=== PATIENT | female | born 1940 | race Caucasian/White ===

== ENCOUNTER → 2019-04-19 | Outpatient (CLI) | payer MEDICARE ==
--- NOTE | 2019-04-19 20:15 | REP ---
PA and lateral chest: There are no comparisons. The lung villalta are hyperinflated. There is focal increased density above the right hemidiaphragm. There is focal increased density inferolaterally in the left lung. There is fullness in the left hilus. CT is recommended for further evaluation of these findings. Cardiac size is normal. The mediastinum and skeletal structures are unremarkable. Impression: Focal zones of increased parenchymal density bilaterally and left hilar fullness. CT is recommended for further evaluation of these findings, particularly in view of the fact there are no comparison studies. There is surgical fusion of the lumbar spine. Electronically Signed by Brezey Meneses MD 04/19/2019 08:07 P
== END ==
LOC: M ADAMS 19:09
PROVIDERS: ATTEND Physician Assistant
DX: R50.9 Fever, unspecified (principal); R05 Cough; Z98.1 Arthrodesis status

== ENCOUNTER → 2019-04-20 | Outpatient (CLI) | payer MEDICARE ==
[2019-04-20 10:54] LABS: BASO % 0.2 % (0.0-1.0); EOS % 0.1 % (0.0-3.0); HEMOGLOBIN 14.1 g/dl (12.0-15.5); LYMPH # 1.3 10^3/uL (1.5-5.0); LYMPH % 7.4 % (24.0-44.0); MEAN CORPUSCULAR HEMOGLOBIN 32.9 pg (27.0-33.0); MEAN CORPUSCULAR HGB CONC 33.6 g/dl (32.0-36.5); MEAN CORPUSCULAR VOLUME 98.1 fl (80.0-96.0); MONO # 1.7 10^3/uL (0.0-0.8); MONO % 9.5 % (0.0-5.0); NEUTROPHILS # 14.7 10^3/uL (1.5-8.5); NEUTROPHILS % 82.1 % (36.0-66.0); PLATELET COUNT, AUTOMATED 172 10^3/uL (150-450); RED BLOOD COUNT 4.28 10^6/uL (4.00-5.40); WHITE BLOOD COUNT 17.9 10^3/uL (4.0-10.0)
[2019-04-20 11:17] LABS: ERYTHROCYTE SEDIMENTATION RATE 57 mm/hr (0-30)
[2019-04-20 13:19] LABS: ALBUMIN 2.7 GM/DL (3.2-5.2); ALT/SGPT 41 U/L (12-78); BILIRUBIN,TOTAL 1.3 MG/DL (0.2-1.0); BLOOD UREA NITROGEN 21 MG/DL (7-18); CALCIUM LEVEL 8.6 MG/DL (8.8-10.2); CARBON DIOXIDE LEVEL 27 MEQ/L (21-32); CHLORIDE LEVEL 95 MEQ/L (98-107); CREATININE FOR GFR 0.84 MG/DL (0.55-1.30); GLOMERULAR FILTRATION RATE > 60.0 (>39); GLUCOSE, FASTING 114 MG/DL (70-100); POTASSIUM SERUM 4.5 MEQ/L (3.5-5.1); SODIUM LEVEL 131 MEQ/L (136-145); TOTAL PROTEIN 6.9 GM/DL (6.4-8.2)
== END ==
LOC: M LABDRWAD 09:16
PROVIDERS: ATTEND Physician Assistant
DX: R50.9 Fever, unspecified (principal); J18.9 Pneumonia, unspecified organism

== ENCOUNTER → 2019-04-21 | Outpatient (CLI) | payer MEDICARE ==
[~2019-04-21] MED LIST: ISOVUE-370 76% 100ML VIAL (Q9967) As Ordered ONE
--- NOTE | 2019-04-21 17:39 | REP ---
CT of the chest with IV contrast: Comparison is the AP and lateral plain film study of 04/19/2019. There are multifocal patchy infiltrates in all lobes of each lung, most extensive in the lower lobes bilaterally. There are small bilateral pleural effusions. There is an infiltrate, periaortic medially medially in the left lower lobe directly behind the left hilus and there is an enlarged left hilar node measuring up to 1 cm short axis. These findings in combination result in the appearance of the left hilar fullness on the comparison plain film study. There are numerous other mediastinal nodes, all borderline enlarged and there is an enlarged precarinal node measuring 16 mm short axis. There is no axillary lymph node enlargement. The thoracic aorta is unremarkable except for calcified atheroma. Cardiac size is normal per there is calcified atheroma in the coronary arteries. Cardiac size is mildly enlarged. No pericardial effusion. The visualized upper abdominal contents are unremarkable. Impression: Multifocal patchy infiltrates in all lobes of both lungs, most predominant in the lower lobes. Small bilateral pleural effusions. Mediastinal and left hilar lymph node enlargement. Electronically Signed by Breezy Meneses MD 04/21/2019 05:31 P
== END ==
LOC: M RAD 16:31
PROVIDERS: ATTEND Physician Assistant
DX: R91.8 Other nonspecific abnormal finding of lung field (principal); J90 Pleural effusion, not elsewhere classified; I70.0 Atherosclerosis of aorta; I25.10 Atherosclerotic heart disease of native coronary artery without angina pectoris; R59.0 Localized enlarged lymph nodes
CPT/HCPCS: 71260; Q9967

== ENCOUNTER → 2019-04-24 | Outpatient (REF) | payer MEDICARE ==
[2019-04-24 13:36] LABS: BASO # 0.1 10^3/uL (0.0-0.2); BASO % 0.5 % (0.0-1.0); EOS # 0.3 10^3/uL (0.0-0.5); EOS % 2.4 % (0.0-3.0); HEMATOCRIT 42.4 % (36.0-47.0); LYMPH # 2.3 10^3/uL (1.5-5.0); MEAN CORPUSCULAR HEMOGLOBIN 33.1 pg (27.0-33.0); MEAN CORPUSCULAR VOLUME 100.2 fl (80.0-96.0); MONO % 8.1 % (0.0-5.0); NEUTROPHILS # 8.7 10^3/uL (1.5-8.5); NEUTROPHILS % 69.5 % (36.0-66.0); PLATELET COUNT, AUTOMATED 331 10^3/uL (150-450); RED BLOOD COUNT 4.23 10^6/uL (4.00-5.40); WHITE BLOOD COUNT 12.6 10^3/uL (4.0-10.0)
[2019-04-24 14:00] LABS: ERYTHROCYTE SEDIMENTATION RATE 79 mm/hr (0-30)
[2019-04-24 14:14] LABS: ALBUMIN 2.4 GM/DL (3.2-5.2); ALT/SGPT 66 U/L (12-78); BILIRUBIN,TOTAL 0.4 MG/DL (0.2-1.0); BLOOD UREA NITROGEN 9 MG/DL (7-18); C REACTIVE PROTEIN QUANTITATIV 7.09 MG/DL (0.00-0.30); CALCIUM LEVEL 8.3 MG/DL (8.8-10.2); CARBON DIOXIDE LEVEL 29 MEQ/L (21-32); CHLORIDE LEVEL 102 MEQ/L (98-107); CREATININE FOR GFR 0.53 MG/DL (0.55-1.30); GLOMERULAR FILTRATION RATE > 60.0 (>39); GLUCOSE, FASTING 87 MG/DL (70-100); POTASSIUM SERUM 4.9 MEQ/L (3.5-5.1); SODIUM LEVEL 137 MEQ/L (136-145); TOTAL PROTEIN 6.6 GM/DL (6.4-8.2)
== END ==
LOC: M LABDRWAD 13:10
PROVIDERS: ATTEND Physician Assistant
DX: J18.9 Pneumonia, unspecified organism (principal)

== ENCOUNTER → 2019-05-16 | Outpatient (CLI) | payer MEDICARE | LOC: M ADAMS 15:23 | PROVIDERS: ATTEND Internal Medicine Pulmonary Disease | DX: J18.9 Pneumonia, unspecified organism (principal); Z53.9 Procedure and treatment not carried out, unspecified reason ==

== ENCOUNTER → 2019-05-16 | Outpatient (CLI) | payer MEDICARE ==
--- NOTE | 2019-05-16 16:13 | REP ---
Clinical: pneumonia . Comparison: 04/19/2019 . Technique: PA and lateral. Findings: The mediastinum and cardiac silhouette are normal. The lung villalta demonstrate diffuse chronic interstitial changes and previous lingular infiltrate appears to have resolved. The skeletal structures the straight osteopenia and degenerative changes. Impression: 1. Chronic-appearing changes. Previous lingular infiltrate appears to have resolved. Small ill-defined areas of atelectasis cannot be excluded. Electronically Signed by Red Victor MD 05/16/2019 04:04 P
== END ==
LOC: M ADAMS 08:00
PROVIDERS: ATTEND Internal Medicine Pulmonary Disease
DX: J18.9 Pneumonia, unspecified organism (principal)

== ENCOUNTER → 2019-06-12 | Outpatient (CLI) | payer MEDICARE ==
[2019-06-12 20:03] LABS: ALBUMIN 3.4 GM/DL (3.2-5.2); BLOOD UREA NITROGEN 13 MG/DL (7-18); CALCIUM LEVEL 8.9 MG/DL (8.8-10.2); CARBON DIOXIDE LEVEL 29 MEQ/L (21-32); CHLORIDE LEVEL 104 MEQ/L (98-107); GLOMERULAR FILTRATION RATE > 60.0 (>39); GLUCOSE, FASTING 74 MG/DL (70-100); PHOSPHORUS LEVEL 3.7 MG/DL (2.5-4.9); POTASSIUM SERUM 4.1 MEQ/L (3.5-5.1); SODIUM LEVEL 140 MEQ/L (136-145)
== END ==
LOC: M LABDRWAD 16:05 → M ADAMS 16:05
PROVIDERS: ATTEND Internal Medicine Pulmonary Disease
DX: I10 Essential (primary) hypertension (principal); J18.9 Pneumonia, unspecified organism

== ENCOUNTER → 2019-08-29 | Outpatient (CLI) | payer MEDICARE ==
--- NOTE | 2019-08-29 14:37 | REP ---
Clinical: Follow up abnormal findings. Technique: Axial noncontrast images from the thoracic inlet to the upper abdomen with coronal and sagittal re-formations. Comparison: 04/21/2019. Findings: In comparison to prior examination there has been considerable improvement and in the previously noted scattered areas of consolidation have essentially completely resolved. Residual chronic-appearing tree in bud type reticulonodular infiltrates are identified primarily involving areas of the right upper lobe, right middle lobe, lingula and perihilar right lower lobe along with chronic stable bronchiectasis. No acute consolidation. No effusion. No pneumothorax. Improved mediastinal adenopathy noted, but the lymph nodes are again identified measuring up to approximately 16 mm. Atherosclerotic changes to the thoracic aorta and coronary arteries again noted with relatively stable appearance to the thoracic aorta, pulmonary vasculature and heart/pericardium. Surrounding musculoskeletal structures intact without focal abnormality. Impression: 1. The previously noted scattered areas of consolidation/multifocal pneumonia have resolved. 2. Chronic residual changes including bronchiectasis and chronic appearing reticulonodular tree in bud infiltrates likely representing a subacute/chronic pneumonitis type process. Electronically Signed by Red Victor MD 08/29/2019 02:28 P
== END ==
LOC: M RAD 13:36
PROVIDERS: ATTEND Internal Medicine Pulmonary Disease
DX: R91.8 Other nonspecific abnormal finding of lung field (principal)

== ENCOUNTER → 2019-09-27 | Outpatient (REF) | payer MEDICARE ==
[2019-09-27 19:27] LABS: ALBUMIN 3.6 GM/DL (3.2-5.2); ALT/SGPT 21 U/L (12-78); BILIRUBIN,TOTAL 0.3 MG/DL (0.2-1.0); BLOOD UREA NITROGEN 14 MG/DL (7-18); CALCIUM LEVEL 8.8 MG/DL (8.8-10.2); CARBON DIOXIDE LEVEL 32 MEQ/L (21-32); CHLORIDE LEVEL 106 MEQ/L (98-107); CHOLESTEROL LEVEL 205 MG/DL (<200); CHOLESTEROL RISK RATIO 2.928 (<5); CREATININE FOR GFR 0.57 MG/DL (0.55-1.30); GLOMERULAR FILTRATION RATE > 60.0 (>32); GLUCOSE, FASTING 79 MG/DL (70-100); HDL CHOLESTEROL 70 MG/DL (>40); LDL CHOLESTEROL 120 MG/DL (<100); NON-HDL-C 135 MG/DL; POTASSIUM SERUM 4.6 MEQ/L (3.5-5.1); SODIUM LEVEL 140 MEQ/L (136-145); TRIGLYCERIDES LEVEL 74 MG/DL (<150)
[2019-09-27 19:38] LABS: HEMATOCRIT 44.8 % (36.0-47.0); HEMOGLOBIN 14.8 g/dl (12.0-15.5); MEAN CORPUSCULAR HEMOGLOBIN 32.3 pg (27.0-33.0); MEAN CORPUSCULAR VOLUME 97.8 fl (80.0-96.0); PLATELET COUNT, AUTOMATED 203 10^3/uL (150-450); RED BLOOD COUNT 4.58 10^6/uL (4.00-5.40); WHITE BLOOD COUNT 7.8 10^3/uL (4.0-10.0)
== END ==
LOC: EDBD → M SFHCADAM 15:12 → MERGE 15:12
PROVIDERS: ATTEND Physician Assistant
DX: I10 Essential (primary) hypertension (principal); I45.2 Bifascicular block
CPT/HCPCS: 80053; 80061; 84439; 84443; 85027; 93005; G0463

== ENCOUNTER → 2020-10-28 | Outpatient (CLI) | payer MEDICARE ==
--- NOTE | 2020-10-28 16:45 | REP ---
INDICATION: ABN FINDING OF LUNG. COMPARISON: 08/29/2019 and 04/21/2019 TECHNIQUE: Noncontrast enhanced CT scan of the chest FINDINGS: There is no significant change in appearance of the mediastinum or pulmonary tejas. There is mediastinal adenopathy with the largest node measuring approximately 1.7 cm. The pulmonary tejas are difficult to evaluate without the administration of intravenous contrast. No pleural or pericardial effusions have developed. There is no significant change in appearance of the imaged upper abdomen or imaged osseous structures. Evaluation of the lung villalta shows biapical pleuroparenchymal scarring status quo. Patchy and asymmetric reticulonodular densities are again seen in the inferior right middle lobe and lingula and seen in conjunction with evidence of varicoid and saccular bronchiectasis. Numerable pulmonary nodules are again seen in those affected lung areas and having a stable appearance. No new definite nodules or masses have developed. IMPRESSION: Stable appearing chronic changes as described above. <Electronically signed by Baldo Morrison > 10/28/20 [id number]
== END ==
LOC: M RAD 15:30
PROVIDERS: ATTEND Internal Medicine Pulmonary Disease
DX: R91.8 Other nonspecific abnormal finding of lung field (principal)

== ENCOUNTER 2022-02-09 16:25 | Emergency (ER) | payer BC, MEDICARE ==
[~2022-02-09] VITALS: Ht 172.7 cm; Wt 50.9 kg
[2022-02-09 20:34] VITALS: BP 148/76
== END 2022-02-09 21:08 | disposition home or self-care (01) ==
LOC: M ED 16:25
DX: S63.501A Unspecified sprain of right wrist, initial encounter (principal); W01.0XXA Fall on same level from slipping, tripping and stumbling without subsequent striking against object, initial encounter; Y92.018 Other place in single-family (private) house as the place of occurrence of the external cause; I10 Essential (primary) hypertension

== ENCOUNTER → 2022-02-24 | Outpatient (CLI) | payer MEDICARE | LOC: M SOG 13:05 | PROVIDERS: ATTEND Physician Assistant | DX: M25.531 Pain in right wrist (principal) ==

== ENCOUNTER → 2022-03-05 | Outpatient (CLI) | payer MEDICARE | LOC: M SOG 14:56 | PROVIDERS: ATTEND Orthopaedic Surgery Hand Surgery | DX: S63.601A Unspecified sprain of right thumb, initial encounter (principal); X58.XXXA Exposure to other specified factors, initial encounter; Y92.89 Other specified places as the place of occurrence of the external cause ==

== ENCOUNTER → 2022-07-14 | Outpatient (CLI) | payer MEDICARE, BC ==
[~2022-07-14] MED LIST changes: +AMLO2.5T3; -ISOVUE-370 76% 100ML VIAL (Q9967) As Ordered ONE; +LOSA100T45; +VITMTA PO
== END ==
LOC: M LABSMTC 09:17
PROVIDERS: ATTEND Anesthesiology
DX: Z01.818 Encounter for other preprocedural examination (principal)

== ENCOUNTER 2022-07-17 09:33 | Day surgery (SDC) | payer MEDICARE, BC ==
[~2022-07-17] VITALS: Ht 172.7 cm; Wt 53.1 kg
[2022-07-17] MEDS ORDERED: BUPIVACAINE HCL 0.25% 30ML VIAL As Ordered ONE (09:59)
[2022-07-17] MEDS ORDERED: LIDOCAINE W/EPINEPHRINE 1% 20ML VIAL ID ONE (10:15)
[2022-07-17] MEDS ORDERED: SODIUM BICARBONATE 8.4% INJ 50MEQ 50ML VIAL ID ONE (10:15)
[2022-07-17] MEDS ORDERED: BACITRACIN OINTMENT 30GM TUBE As Ordered ONE (11:28)
[2022-07-17 11:55] VITALS: BP 143/87
== END 2022-07-17 12:05 | disposition home or self-care (01) ==
LOC: M SDC 09:33
PROVIDERS: ATTEND Orthopaedic Surgery Hand Surgery
DX: G56.01 Carpal tunnel syndrome, right upper limb (principal); I10 Essential (primary) hypertension; Z79.899 Other long term (current) drug therapy; Z88.0 Allergy status to penicillin

== ENCOUNTER 2023-04-20 09:16 | Emergency (ER) | payer BC, MEDICARE ==
[~2023-04-20] VITALS: Ht 172.7 cm; Wt 58.3 kg
[~2023-04-20 09:16] MED LIST changes: -AMLO2.5T3; +AMLO2.5T3 PO; -LOSA100T45; +LOSA100T46 PO
[2023-04-20 09:18] VITALS: TEMP 98.5
[2023-04-20 10:24] LABS: BASO % 0.4 % (0.0-1.0); EOS # 0.1 10^3/uL (0.0-0.5); EOS % 0.8 % (0.0-3.0); HEMATOCRIT 43.8 % (36.0-47.0); HEMOGLOBIN 14.4 g/dl (12.0-15.5); LYMPH # 1.7 10^3/uL (1.5-5.0); LYMPH % 21.6 % (24.0-44.0); MEAN CORPUSCULAR HEMOGLOBIN 32.8 pg (27.0-33.0); MEAN CORPUSCULAR HGB CONC 32.9 g/dl (32.0-36.5); MEAN CORPUSCULAR VOLUME 99.8 fl (80.0-96.0); MONO # 0.6 10^3/uL (0.0-0.8); MONO % 8.1 % (2.0-8.0); NEUTROPHILS # 5.3 10^3/uL (1.5-8.5); NEUTROPHILS % 68.7 % (36.0-66.0); PLATELET COUNT, AUTOMATED 160 10^3/uL (150-450); RED BLOOD COUNT 4.39 10^6/uL (4.00-5.40); WHITE BLOOD COUNT 7.8 10^3/uL (4.0-10.0)
[2023-04-20 12:20] LABS: BASO % 0.4 % (0.0-1.0); EOS % 0.2 % (0.0-3.0); HEMATOCRIT 43.9 % (36.0-47.0); HEMOGLOBIN 14.8 g/dl (12.0-15.5); LYMPH # 0.9 10^3/uL (1.5-5.0); LYMPH % 10.2 % (24.0-44.0); MEAN CORPUSCULAR HEMOGLOBIN 33.1 pg (27.0-33.0); MEAN CORPUSCULAR HGB CONC 33.7 g/dl (32.0-36.5); MEAN CORPUSCULAR VOLUME 98.2 fl (80.0-96.0); MONO # 0.4 10^3/uL (0.0-0.8); MONO % 4.9 % (2.0-8.0); NEUTROPHILS # 7.2 10^3/uL (1.5-8.5); NEUTROPHILS % 84.1 % (36.0-66.0); PLATELET COUNT, AUTOMATED 164 10^3/uL (150-450); RED BLOOD COUNT 4.47 10^6/uL (4.00-5.40); WHITE BLOOD COUNT 8.6 10^3/uL (4.0-10.0)
[2023-04-20 12:46] LABS: LIPASE 31 U/L (12-53)
[2023-04-20 12:48] LABS: ALBUMIN 3.6 G/DL (3.2-5.2); ALKALINE PHOSPHATASE 103 U/L (46-116); ALT/SGPT 35 U/L (7.0-40); AST/SGOT 49 U/L (<34); BILIRUBIN,DIRECT 0.2 MG/DL (<0.4); BILIRUBIN,TOTAL 0.5 MG/DL (0.3-1.2); BLOOD UREA NITROGEN 22 MG/DL (9-23); CALCIUM LEVEL 9.2 MG/DL (8.3-10.6); CARBON DIOXIDE LEVEL 29 MMOL/L (20-31); CHLORIDE LEVEL 105 MMOL/L (98-107); CK-MB VALUE MASS 3.3 NG/ML (<3.6); CPK CREATINE PHOSPHOKINASE 127 U/L (34-145); CREATININE FOR GFR 0.94 MG/DL (0.55-1.30); GLOMERULAR FILTRATION RATE > 60.0 (>32); GLUCOSE, FASTING 116 MG/DL (74-106); MB/CK RELATIVE INDEX 2.59 (< OR =4); POTASSIUM SERUM 4.5 MMOL/L (3.5-5.1); SODIUM LEVEL 138 MMOL/L (136-145); TOTAL PROTEIN 7.2 G/DL (5.7-8.2)
[2023-04-20 12:50] LABS: FREE T4 0.88 NG/DL (0.89-1.76)
[2023-04-20 12:51] LABS: THYROID STIMULATING HORMONE 3.728 uIU/ML (0.55-4.78)
[2023-04-20 13:37] LABS: CK-MB VALUE MASS 3.2 NG/ML (<3.6)
[2023-04-20 13:39] LABS: MB/CK RELATIVE INDEX 2.8 (< OR =4)
[2023-04-20] MEDS ORDERED: ELIQ5TAB PO (18:30)
[2023-04-20] MEDS ORDERED: HOLTER MONITOR XX (18:31)
[2023-04-20 19:15] VITALS: BP 150/70
[2023-04-20 19:45] VITALS: O2SAT 97
[2023-04-21] MEDS ORDERED: ELIQ2.5T PO (11:25)
[2023-04-21] MEDS ORDERED: ELIQ5TAB PO (11:26)
== END 2023-04-20 20:00 | disposition home or self-care (01) ==
LOC: M ED 09:16
DX: I48.91 Unspecified atrial fibrillation (principal); I10 Essential (primary) hypertension; Z79.899 Other long term (current) drug therapy

== ENCOUNTER 2023-04-21 08:45 | Inpatient (IN) | payer MEDICARE, BC ==
[~2023-04-21] VITALS: Ht 172.7 cm; Wt 53.1 kg
[~2023-04-21 08:45] MED LIST changes: +ELIQ5TAB PO; +HOLTER MONITOR XX
[2023-04-21] MEDS ORDERED: METOPROLOL TART 12.5 MG PER 1/2 TAB PO SCH (09:00)
[2023-04-21] MEDS ORDERED: METOCLOPRAMIDE INJ 10MG/2ML VIAL IV ONE (09:00)
[2023-04-21 09:34] LABS: BASO # 0.1 10^3/uL (0.0-0.2); BASO % 0.7 % (0.0-1.0); EOS # 0.1 10^3/uL (0.0-0.5); EOS % 0.7 % (0.0-3.0); HEMATOCRIT 41.9 % (36.0-47.0); HEMOGLOBIN 14.3 g/dl (12.0-15.5); LYMPH % 25.9 % (24.0-44.0); MEAN CORPUSCULAR HEMOGLOBIN 33.4 pg (27.0-33.0); MEAN CORPUSCULAR HGB CONC 34.1 g/dl (32.0-36.5); MEAN CORPUSCULAR VOLUME 97.9 fl (80.0-96.0); MONO # 0.6 10^3/uL (0.0-0.8); MONO % 8.1 % (2.0-8.0); NEUTROPHILS # 4.9 10^3/uL (1.5-8.5); NEUTROPHILS % 64.1 % (36.0-66.0); PLATELET COUNT, AUTOMATED 146 10^3/uL (150-450); RED BLOOD COUNT 4.28 10^6/uL (4.00-5.40); WHITE BLOOD COUNT 7.7 10^3/uL (4.0-10.0)
[2023-04-21 10:00] LABS: BLOOD UREA NITROGEN 28 MG/DL (9-23); CALCIUM LEVEL 8.9 MG/DL (8.3-10.6); CARBON DIOXIDE LEVEL 26 MMOL/L (20-31); CHLORIDE LEVEL 105 MMOL/L (98-107); CREATININE FOR GFR 0.87 MG/DL (0.55-1.30); GLOMERULAR FILTRATION RATE > 60.0 (>32); GLUCOSE, FASTING 131 MG/DL (74-106); MAGNESIUM LEVEL 2.1 MG/DL (1.8-2.4); POTASSIUM SERUM 4.1 MMOL/L (3.5-5.1); SODIUM LEVEL 138 MMOL/L (136-145)
[2023-04-21 10:01] LABS: CK-MB VALUE MASS 3.3 NG/ML (<3.6)
[2023-04-21 10:04] LABS: THYROID STIMULATING HORMONE 4.253 uIU/ML (0.55-4.78)
[2023-04-21 10:05] LABS: CPK CREATINE PHOSPHOKINASE 151 U/L (34-145); MB/CK RELATIVE INDEX 2.18 (< OR =4)
[2023-04-21] MEDS ORDERED: BOOSTRIX VACCINE (TETANUS/DIPHTH/ACEL. PERTUSSIS) 0.5ML SYR IM.IMMUN ONE (10:30)
[2023-04-21] MEDS ORDERED: ACETAMINOPHEN 500 MG TAB PO ONE (10:45)
[2023-04-21] MEDS ORDERED: MED REC IN PROGRESS XX SCH (11:05)
[2023-04-21 11:11] LABS: CK-MB VALUE MASS 3.2 NG/ML (<3.6)
[2023-04-21 11:19] LABS: MB/CK RELATIVE INDEX 2.19 (< OR =4)
[2023-04-21] MEDS ORDERED: ELIQ2.5T PO (11:25)
[2023-04-21] MEDS ORDERED: ELIQ5TAB PO (11:26)
[2023-04-21] MEDS ORDERED: HOME MED LIST COMPLETE! XX SCH (11:35)
[2023-04-21] MEDS: ENOXAPARIN 40MG/0.4ML SYRINGE (J1650 PER 10MG) SC SCH (14:12)
[2023-04-21 17:31] VITALS: BP 129/68; TEMP 97.9; O2SAT 97
[2023-04-21 19:16] VITALS: BP 147/65; TEMP 97.8; O2SAT 95
[2023-04-21] MEDS ORDERED: lisinopriL 5 MG TAB PO SCH (21:00)
[2023-04-21] MEDS: LOSARTAN 50MG TABLET PO SCH (21:09)
[2023-04-21 23:30] VITALS: BP 147/81; TEMP 98.5; O2SAT 96
[2023-04-22] VITALS (7 sets, daily range): BP systolic 136–168; BP diastolic 65–90; TEMP 97.1–97.9; O2SAT 90–97
[2023-04-22 05:40] LABS: BASO % 0.5 % (0.0-1.0); EOS # 0.1 10^3/uL (0.0-0.5); EOS % 1.1 % (0.0-3.0); HEMATOCRIT 40.9 % (36.0-47.0); HEMOGLOBIN 13.5 g/dl (12.0-15.5); LYMPH # 1.6 10^3/uL (1.5-5.0); LYMPH % 19.5 % (24.0-44.0); MEAN CORPUSCULAR HEMOGLOBIN 32.5 pg (27.0-33.0); MEAN CORPUSCULAR VOLUME 98.3 fl (80.0-96.0); MONO # 0.7 10^3/uL (0.0-0.8); MONO % 9.2 % (2.0-8.0); NEUTROPHILS # 5.6 10^3/uL (1.5-8.5); NEUTROPHILS % 69.5 % (36.0-66.0); PLATELET COUNT, AUTOMATED 149 10^3/uL (150-450); RED BLOOD COUNT 4.16 10^6/uL (4.00-5.40); WHITE BLOOD COUNT 8.1 10^3/uL (4.0-10.0)
[2023-04-22 06:04] LABS: BLOOD UREA NITROGEN 22 MG/DL (9-23); CALCIUM LEVEL 8.4 MG/DL (8.3-10.6); CARBON DIOXIDE LEVEL 26 MMOL/L (20-31); CHLORIDE LEVEL 107 MMOL/L (98-107); CREATININE FOR GFR 0.71 MG/DL (0.55-1.30); GLOMERULAR FILTRATION RATE > 60.0 (>32); GLUCOSE, FASTING 103 MG/DL (74-106); MAGNESIUM LEVEL 1.8 MG/DL (1.8-2.4); POTASSIUM SERUM 4.2 MMOL/L (3.5-5.1); SODIUM LEVEL 139 MMOL/L (136-145)
[2023-04-22] MEDS: LOSARTAN 50MG TABLET PO SCH ×2 (07:53→21:06)
[2023-04-22] MEDS: amLODIPine 5 MG TAB PO SCH ×2 (09:00→22:25)
[2023-04-22] MEDS: ENOXAPARIN 40MG/0.4ML SYRINGE (J1650 PER 10MG) SC SCH (10:10)
[2023-04-22] MEDS: NITROGLYCERIN 2% OINT 1 GM *U/D* PKT TOP SCH (20:00)
[2023-04-22] MEDS ORDERED: ENOXAPARIN 60MG/0.6ML SYRINGE (J1650 PER 10MG) SC SCH (21:00)
[2023-04-23] VITALS (10 sets, daily range): BP systolic 117–178; BP diastolic 61–84; TEMP 96.8–98.8; O2SAT 94–97
[2023-04-23] MEDS: NITROGLYCERIN 2% OINT 1 GM *U/D* PKT TOP SCH ×4 (00:27→12:00)
[2023-04-23] MEDS ORDERED: D5W/LR 1,000 ML IV SCH (06:00)
[2023-04-23] MEDS ORDERED: ceFAZolin SOD 2 GM in IV 1 EA IV ONE (06:00)
[2023-04-23 06:08] LABS: BASO # 0.1 10^3/uL (0.0-0.2); BASO % 0.7 % (0.0-1.0); EOS # 0.3 10^3/uL (0.0-0.5); EOS % 4.1 % (0.0-3.0); HEMATOCRIT 44.4 % (36.0-47.0); HEMOGLOBIN 15.1 g/dl (12.0-15.5); LYMPH % 27.3 % (24.0-44.0); MEAN CORPUSCULAR HEMOGLOBIN 33.2 pg (27.0-33.0); MEAN CORPUSCULAR VOLUME 97.6 fl (80.0-96.0); MONO # 0.7 10^3/uL (0.0-0.8); MONO % 9.9 % (2.0-8.0); NEUTROPHILS # 4.3 10^3/uL (1.5-8.5); NEUTROPHILS % 57.7 % (36.0-66.0); PLATELET COUNT, AUTOMATED 160 10^3/uL (150-450); RED BLOOD COUNT 4.55 10^6/uL (4.00-5.40); WHITE BLOOD COUNT 7.4 10^3/uL (4.0-10.0)
[2023-04-23 06:40] LABS: BLOOD UREA NITROGEN 16 MG/DL (9-23); CALCIUM LEVEL 8.7 MG/DL (8.3-10.6); CARBON DIOXIDE LEVEL 28 MMOL/L (20-31); CHLORIDE LEVEL 105 MMOL/L (98-107); CREATININE FOR GFR 0.68 MG/DL (0.55-1.30); GLOMERULAR FILTRATION RATE > 60.0 (>32); GLUCOSE, FASTING 106 MG/DL (74-106); MAGNESIUM LEVEL 1.9 MG/DL (1.8-2.4); POTASSIUM SERUM 4.7 MMOL/L (3.5-5.1); SODIUM LEVEL 138 MMOL/L (136-145)
[2023-04-23] MEDS: LOSARTAN 50MG TABLET PO SCH ×2 (08:56→21:00)
[2023-04-23] MEDS: amLODIPine 5 MG TAB PO SCH ×2 (10:48→20:22)
[2023-04-23] MEDS: ROSUVASTATIN 10 MG TAB (CRESTOR) PO SCH (10:48)
[2023-04-23] MEDS ORDERED: ONDANSETRON 4MG 2ML VIAL As Ordered ONE (11:51)
[2023-04-23] MEDS ORDERED: propofoL 200 MG/20 ML VIAL As Ordered ONE (11:51)
[2023-04-23] MEDS ORDERED: fentaNYL 100 MCG/2 ML INJECTION As Ordered ONE (11:51)
[2023-04-23] MEDS ORDERED: MIDAZOLAM INJ 2MG/2ML VIAL As Ordered ONE (11:51)
[2023-04-23] MEDS ORDERED: LIDOCAINE 2% 100MG/5ML SDV (FOR ANES.) As Ordered ONE (11:51)
[2023-04-23] MEDS ORDERED: LIDOCAINE 1% MDV 50ML VIAL As Ordered ONE (14:18)
[2023-04-23] MEDS ORDERED: ISOVUE-300 61% 100ML VIAL As Ordered ONE (15:30)
[2023-04-23] MEDS ORDERED: LIDOCAINE 1% SDV 30ML VIAL As Ordered ONE (15:30)
[2023-04-23] MEDS ORDERED: AMIODARONE 150MG/3ML VIAL As Ordered ONE (15:31)
[2023-04-23] MEDS ORDERED: ceFAZolin 2 GM/D5W 50 ML IV BAG As Ordered ONE (16:18)
[2023-04-23] MEDS ORDERED: ONDANSETRON 4MG 2ML VIAL IV PRN (17:15)
[2023-04-23] MEDS ORDERED: LR 1,000 ML IV SCH (17:15)
[2023-04-23] MEDS ORDERED: fentaNYL 100 MCG/2 ML INJECTION IV PRN (17:15)
[2023-04-23] MEDS ORDERED: HYDROMORPHONE HCL 0.5 MG/ 0.5 ML SYRINGE IV PRN (17:15)
[2023-04-23] MEDS ORDERED: oxyCODONE 5MG TAB PO PRN (17:15)
[2023-04-23] MEDS ORDERED: traMADol 50 MG TAB PO PRN (17:25)
[2023-04-23] MEDS ORDERED: ACETAMINOPHEN TAB 650MG DOSE (2X325MG) PO PRN (17:25)
[2023-04-23] MEDS: CARVedilol 6.25 MG TAB PO SCH (20:22)
[2023-04-23] MEDS: ceFAZolin SOD 1 GM in D5W MINI-BAG PLUS 50 ML IV SCH (23:31)
[2023-04-24] VITALS (7 sets, daily range): BP systolic 116–146; BP diastolic 65–75; TEMP 96.9–97.6; O2SAT 97–100
[2023-04-24 05:42] LABS: BASO % 0.5 % (0.0-1.0); EOS # 0.3 10^3/uL (0.0-0.5); EOS % 3.5 % (0.0-3.0); LYMPH # 1.3 10^3/uL (1.5-5.0); LYMPH % 17.2 % (24.0-44.0); MEAN CORPUSCULAR HEMOGLOBIN 32.7 pg (27.0-33.0); MEAN CORPUSCULAR HGB CONC 33.3 g/dl (32.0-36.5); MEAN CORPUSCULAR VOLUME 98.1 fl (80.0-96.0); MONO # 0.8 10^3/uL (0.0-0.8); MONO % 10.7 % (2.0-8.0); NEUTROPHILS # 5.1 10^3/uL (1.5-8.5); NEUTROPHILS % 67.7 % (36.0-66.0); PLATELET COUNT, AUTOMATED 156 10^3/uL (150-450); RED BLOOD COUNT 4.28 10^6/uL (4.00-5.40); WHITE BLOOD COUNT 7.5 10^3/uL (4.0-10.0)
[2023-04-24 06:06] LABS: BLOOD UREA NITROGEN 18 MG/DL (9-23); CALCIUM LEVEL 8.2 MG/DL (8.3-10.6); CARBON DIOXIDE LEVEL 27 MMOL/L (20-31); CHLORIDE LEVEL 105 MMOL/L (98-107); CREATININE FOR GFR 0.68 MG/DL (0.55-1.30); GLOMERULAR FILTRATION RATE > 60.0 (>32); GLUCOSE, FASTING 117 MG/DL (74-106); MAGNESIUM LEVEL 1.8 MG/DL (1.8-2.4); POTASSIUM SERUM 4.2 MMOL/L (3.5-5.1); SODIUM LEVEL 138 MMOL/L (136-145)
[2023-04-24] MEDS: amLODIPine 5 MG TAB PO SCH (07:54)
[2023-04-24] MEDS: ROSUVASTATIN 10 MG TAB (CRESTOR) PO SCH (08:06)
[2023-04-24] MEDS: CARVedilol 6.25 MG TAB PO SCH (08:06)
[2023-04-24] MEDS: LOSARTAN 50MG TABLET PO SCH (09:00)
[2023-04-24] MEDS ORDERED: ROSU20TA61 PO (09:30)
[2023-04-24] MEDS ORDERED: TRAM50TA2 PO (09:30)
[2023-04-24] MEDS ORDERED: CARV6.25 PO (09:30)
[2023-04-24] MEDS ORDERED: LOSA-528 PO (09:30)
[2023-04-24] MEDS: ceFAZolin SOD 1 GM in D5W MINI-BAG PLUS 50 ML IV SCH (09:33)
[2023-04-25] MEDS ORDERED: APIXABAN 2.5 MG TAB (ELIQUIS) PO SCH (09:00)
== END 2023-04-24 14:56 | disposition home health service (06) | DRG 243 ==
LOC: EDBD 08:45 → M ED 09:39 → M ED INP 12:34 → ENRESERV 16:02 → M PCU 17:27
PROVIDERS: ADMIT Internal Medicine; ATTEND Internal Medicine
PROC: B246ZZZ Ultrasonography of Right and Left Heart (ICD-10-PCS; 2023-04-21)
PROC: 02HK3JZ Insertion of Pacemaker Lead into Right Ventricle, Percutaneous Approach (ICD-10-PCS; 2023-04-23)
PROC: 0JH634Z Insertion of Pacemaker, Single Chamber into Chest Subcutaneous Tissue and Fascia, Percutaneous Approach (ICD-10-PCS; principal; 2023-04-23 15:00)
DX: I48.20 Chronic atrial fibrillation, unspecified (principal); Z68.1 Body mass index [BMI] 19.9 or less, adult; I11.9 Hypertensive heart disease without heart failure; R55 Syncope and collapse; I27.81 Cor pulmonale (chronic); S01.01XA Laceration without foreign body of scalp, initial encounter; I08.0 Rheumatic disorders of both mitral and aortic valves; R00.1 Bradycardia, unspecified; I45.10 Unspecified right bundle-branch block; I44.2 Atrioventricular block, complete; M62.50 Muscle wasting and atrophy, not elsewhere classified, unspecified site; Z79.01 Long term (current) use of anticoagulants; Z79.899 Other long term (current) drug therapy; Z20.822 Contact with and (suspected) exposure to COVID-19; Z88.0 Allergy status to penicillin; X58.XXXA Exposure to other specified factors, initial encounter; Y92.9 Unspecified place or not applicable

== ENCOUNTER 2023-05-09 10:49 | Observation (INO) | payer MEDICARE, BC ==
[~2023-05-09] VITALS: Ht 172.7 cm; Wt 56.5 kg
[~2023-05-09 10:49] MED LIST changes: +CARV6.25 PO; +ELIQ2.5T PO; +LOSA-528 PO; +ROSU20TA61 PO; +TRAM50TA2 PO
[2023-05-09] MEDS ORDERED: LOSA25TA13 PO (11:25)
[2023-05-09] MEDS ORDERED: ELIQ5TAB PO (11:25)
[2023-05-09 11:53] LABS: BASO # 0.1 10^3/uL (0.0-0.2); BASO % 0.8 % (0.0-1.0); EOS # 0.3 10^3/uL (0.0-0.5); EOS % 4.1 % (0.0-3.0); HEMATOCRIT 39.3 % (36.0-47.0); HEMOGLOBIN 13.6 g/dl (12.0-15.5); LYMPH # 1.7 10^3/uL (1.5-5.0); LYMPH % 22.7 % (24.0-44.0); MEAN CORPUSCULAR HEMOGLOBIN 33.3 pg (27.0-33.0); MEAN CORPUSCULAR HGB CONC 34.6 g/dl (32.0-36.5); MEAN CORPUSCULAR VOLUME 96.1 fl (80.0-96.0); MONO # 0.8 10^3/uL (0.0-0.8); MONO % 10.7 % (2.0-8.0); NEUTROPHILS # 4.7 10^3/uL (1.5-8.5); NEUTROPHILS % 61.6 % (36.0-66.0); PLATELET COUNT, AUTOMATED 197 10^3/uL (150-450); RED BLOOD COUNT 4.09 10^6/uL (4.00-5.40); WHITE BLOOD COUNT 7.6 10^3/uL (4.0-10.0)
[2023-05-09 12:05] LABS: INR 1.33; PARTIAL THROMBOPLASTIN TIME 21.6 SECONDS (24.8-34.2); PROTHROMBIN TIME 16.1 SECONDS (12.5-14.5)
[2023-05-09 12:26] LABS: RSV AMPLIFICATION NEGATIVE (NEGATIVE)
[2023-05-09] MEDS ORDERED: ISOVUE-370 76% 100ML VIAL As Ordered ONE (13:09)
[2023-05-09] MEDS ORDERED: MED REC IN PROGRESS XX SCH (15:20)
[2023-05-09] MEDS ORDERED: ROSU20TA61 PO (16:01)
[2023-05-09] MEDS ORDERED: AMLO2.5T3 PO (16:01)
[2023-05-09] MEDS ORDERED: CARV6.25 PO (16:01)
[2023-05-09] MEDS ORDERED: CENT1TAB9 PO (16:01)
[2023-05-09] MEDS ORDERED: ACETAMINOPHEN TAB 650MG DOSE (2X325MG) PO PRN (16:05)
[2023-05-09] MEDS ORDERED: HOME MED LIST COMPLETE! XX SCH (16:10)
[2023-05-09] MEDS ORDERED: hydrALAZINE 20MG/ML 1ML VIAL IV PRN (16:10)
[2023-05-09 17:27] VITALS: BP 142/60; TEMP 97.2; O2SAT 96
[2023-05-09 19:14] VITALS: BP 129/60; TEMP 97.6; O2SAT 96
[2023-05-09 20:09] VITALS: BP 129/60
[2023-05-09] MEDS: APIXABAN 2.5 MG TAB (ELIQUIS) PO SCH (20:09)
[2023-05-09] MEDS: CARVedilol 6.25 MG TAB PO SCH (20:09)
[2023-05-09] MEDS ORDERED: ROSUVASTATIN 10 MG TAB (CRESTOR) PO SCH (21:00)
[2023-05-09 23:24] VITALS: BP 129/57; TEMP 97.9; O2SAT 97
[2023-05-10 04:40] VITALS: BP 153/65; TEMP 97.6; O2SAT 96
[2023-05-10 05:15] LABS: HEMATOCRIT 37.8 % (36.0-47.0); HEMOGLOBIN 12.7 g/dl (12.0-15.5); MEAN CORPUSCULAR HGB CONC 33.6 g/dl (32.0-36.5); MEAN CORPUSCULAR VOLUME 98.2 fl (80.0-96.0); PLATELET COUNT, AUTOMATED 179 10^3/uL (150-450); RED BLOOD COUNT 3.85 10^6/uL (4.00-5.40); WHITE BLOOD COUNT 7.4 10^3/uL (4.0-10.0)
[2023-05-10 07:44] VITALS: BP 133/61; TEMP 97.5; O2SAT 94
[2023-05-10] MEDS: APIXABAN 2.5 MG TAB (ELIQUIS) PO SCH (08:54)
[2023-05-10] MEDS: CARVedilol 6.25 MG TAB PO SCH (08:54)
[2023-05-10] MEDS ORDERED: LOSARTAN 25 MG TAB PO SCH (09:00)
[2023-05-10] MEDS ORDERED: FLUZONE HIGH DOSE(65YR UP)QUAD/PF 240MCG/0.7ML SYRINGE IM.IMMUN ONE (09:00)
[2023-05-10 09:49] VITALS: BP_SYST 119; BP_SYST 129; BP_SYST 146; BP_DIAS 53; BP_DIAS 60; BP_DIAS 65
[2023-05-10 14:14] LABS: GLUCOSE, FASTING 99 MG/DL
[2023-05-10 14:15] LABS: ALBUMIN 3.3 G/DL (3.9-5.0); ALKALINE PHOSPHATASE 130 U/L (35-104); ALT/SGPT 14 U/L (1-33); AST/SGOT 23 U/L (5-40); BILIRUBIN,TOTAL < 0.7 MG/DL (0.2-1.3); BLOOD UREA NITROGEN 13 MG/DL (7-21); CALCIUM LEVEL 8.5 MG/DL (8.8-10.2); CARBON DIOXIDE LEVEL 23 MEQ/L (22-30); CHLORIDE LEVEL 105 MEQ/L (98-107); CREATININE FOR GFR 0.7 MG/DL (0.7-1.5); GLOMERULAR FILTRATION RATE > 60.0 (>32); POTASSIUM SERUM 4.6 MEQ/L (3.6-5.0); SODIUM LEVEL 139 MEQ/L (134-153); TOTAL PROTEIN 5.9 G/DL (6.3-8.2)
[2023-05-11 08:48] LABS: FREE T4 0.84 NG/DL (0.93-1.70); THYROID STIMULATING HORMONE 3.67 UIU/ML (0.47-5.01)
== END 2023-05-10 11:47 | disposition home or self-care (01) ==
LOC: M ED 10:49 → M ED INP 10:50 → ENRESERV 16:45 → M PCU 17:28
PROVIDERS: ADMIT Internal Medicine; ATTEND Internal Medicine
DX: R42 Dizziness and giddiness (principal); R55 Syncope and collapse; I48.91 Unspecified atrial fibrillation; I10 Essential (primary) hypertension; I44.39 Other atrioventricular block; Z95.0 Presence of cardiac pacemaker; R91.8 Other nonspecific abnormal finding of lung field; H26.9 Unspecified cataract; Z88.0 Allergy status to penicillin; Z79.899 Other long term (current) drug therapy; Z79.01 Long term (current) use of anticoagulants; Z82.49 Family history of ischemic heart disease and other diseases of the circulatory system; Z83.6 Family history of other diseases of the respiratory system; Z23 Encounter for immunization
CPT/HCPCS: 36415; 71045; 71275; 80047; 80053; 84439; 84443; 84484; 85025; 85027; 85610; 85730; 87631; 90662; 93005; 93041; 94760; 97161; 99285; G0008; G0378; Q9967

== ENCOUNTER → 2023-05-14 | Outpatient (CLI) | payer MEDICARE, BC ==
[~2023-05-14] MED LIST changes: +CENT1TAB9 PO; +LOSA25TA13 PO
== END ==
LOC: M PLAIMG 14:09
PROVIDERS: ATTEND Internal Medicine Critical Care Medicine
DX: J47.9 Bronchiectasis, uncomplicated (principal); R91.8 Other nonspecific abnormal finding of lung field; I51.7 Cardiomegaly; I31.39 Other pericardial effusion (noninflammatory)

== ENCOUNTER → 2023-08-11 | Outpatient (REF) | payer MEDICARE ==
[2023-08-11 16:27] LABS: BASO # 0.1 10^3/uL (0.0-0.2); BASO % 0.8 % (0.0-1.0); EOS # 0.4 10^3/uL (0.0-0.5); EOS % 5.6 % (0.0-3.0); HEMATOCRIT 42.7 % (36.0-47.0); HEMOGLOBIN 13.9 g/dl (12.0-15.5); LYMPH # 2.4 10^3/uL (1.5-5.0); LYMPH % 31.5 % (24.0-44.0); MEAN CORPUSCULAR HEMOGLOBIN 32.4 pg (27.0-33.0); MEAN CORPUSCULAR HGB CONC 32.6 g/dl (32.0-36.5); MEAN CORPUSCULAR VOLUME 99.5 fl (80.0-96.0); MONO # 0.9 10^3/uL (0.0-0.8); MONO % 11.4 % (2.0-8.0); NEUTROPHILS # 3.8 10^3/uL (1.5-8.5); NEUTROPHILS % 50.6 % (36.0-66.0); PLATELET COUNT, AUTOMATED 165 10^3/uL (150-450); RED BLOOD COUNT 4.29 10^6/uL (4.00-5.40); WHITE BLOOD COUNT 7.6 10^3/uL (4.0-10.0)
[2023-08-11 16:32] LABS: ALBUMIN 3.3 G/DL (3.2-5.2); ALKALINE PHOSPHATASE 95 U/L (46-116); ALT/SGPT 27 U/L (7.0-40); AST/SGOT 35 U/L (<34); BILIRUBIN,TOTAL 0.5 MG/DL (0.3-1.2); BLOOD UREA NITROGEN 19 MG/DL (9-23); CALCIUM LEVEL 9.1 MG/DL (8.3-10.6); CARBON DIOXIDE LEVEL 30 MMOL/L (20-31); CHLORIDE LEVEL 107 MMOL/L (98-107); CHOLESTEROL LEVEL 123 MG/DL (<200); CHOLESTEROL RISK RATIO 2.24 (<5); CREATININE FOR GFR 0.91 MG/DL (0.55-1.30); GLOMERULAR FILTRATION RATE > 60.0 (>32); GLUCOSE, FASTING 94 MG/DL (74-106); HDL CHOLESTEROL 54.7 MG/DL (>40); LDL CHOLESTEROL 53.3 MG/DL (<100); NON-HDL-C 68.3 MG/DL; POTASSIUM SERUM 4.2 MMOL/L (3.5-5.1); SODIUM LEVEL 140 MMOL/L (136-145); TRIGLYCERIDES LEVEL 75 MG/DL (<150)
[2023-08-11 16:34] LABS: FREE T4 0.75 NG/DL (0.89-1.76); THYROID STIMULATING HORMONE 3.518 uIU/ML (0.55-4.78)
== END ==
LOC: M SFHCADAM 14:38
PROVIDERS: ATTEND Physician Assistant
DX: I11.9 Hypertensive heart disease without heart failure (principal); Z95.0 Presence of cardiac pacemaker; I34.0 Nonrheumatic mitral (valve) insufficiency; I48.11 Longstanding persistent atrial fibrillation; I65.23 Occlusion and stenosis of bilateral carotid arteries; E78.00 Pure hypercholesterolemia, unspecified; R79.89 Other specified abnormal findings of blood chemistry

== ENCOUNTER → 2023-11-10 | Outpatient (REF) | payer MEDICARE ==
[2023-11-10 18:33] LABS: FREE T4 0.8 NG/DL (0.89-1.76); THYROID STIMULATING HORMONE 3.765 uIU/ML (0.55-4.78)
== END ==
LOC: M SFHCADAM 15:08
PROVIDERS: ATTEND Physician Assistant
DX: R79.89 Other specified abnormal findings of blood chemistry (principal); Z79.899 Other long term (current) drug therapy

== ENCOUNTER → 2024-05-31 | Outpatient (REF) | payer MEDICARE ==
[~2024-05-31] MED LIST changes: -ROSU20TA61 PO; +ROSU20TA86 PO
[2024-05-31 18:55] LABS: BASO # 0.1 10^3/uL (0.0-0.2); BASO % 0.7 % (0.0-1.0); EOS # 0.2 10^3/uL (0.0-0.5); EOS % 2.8 % (0.0-3.0); HEMATOCRIT 42.8 % (36.0-47.0); HEMOGLOBIN 14.1 g/dl (12.0-15.5); LYMPH # 2.2 10^3/uL (1.5-5.0); LYMPH % 30.4 % (24.0-44.0); MEAN CORPUSCULAR HEMOGLOBIN 32.7 pg (27.0-33.0); MEAN CORPUSCULAR HGB CONC 32.9 g/dl (32.0-36.5); MEAN CORPUSCULAR VOLUME 99.3 fl (80.0-96.0); MONO # 0.7 10^3/uL (0.0-0.8); MONO % 9.1 % (2.0-8.0); NEUTROPHILS # 4.2 10^3/uL (1.5-8.5); NEUTROPHILS % 56.6 % (36.0-66.0); PLATELET COUNT, AUTOMATED 145 10^3/uL (150-450); RED BLOOD COUNT 4.31 10^6/uL (4.00-5.40); WHITE BLOOD COUNT 7.4 10^3/uL (4.0-10.0)
[2024-05-31 19:23] LABS: THYROID STIMULATING HORMONE 3.445 uIU/ML (0.55-4.78)
[2024-05-31 19:26] LABS: FREE T4 0.95 NG/DL (0.89-1.76)
[2024-05-31 19:27] LABS: ALBUMIN 3.5 G/DL (3.2-5.2); BILIRUBIN,TOTAL 0.8 MG/DL (0.3-1.2); CALCIUM LEVEL 9.5 MG/DL (8.3-10.6); CREATININE FOR GFR 0.95 MG/DL (0.55-1.30); GLOMERULAR FILTRATION RATE 59.7 (>32); POTASSIUM SERUM 4.2 MMOL/L (3.5-5.1)
== END ==
LOC: M SFHCADAM 15:31
PROVIDERS: ATTEND Physician Assistant
DX: I16.0 Hypertensive urgency (principal)

== ENCOUNTER → 2024-06-02 | Outpatient (REF) | payer MEDICARE ==
[2024-06-02 15:04] LABS: CHOLESTEROL RISK RATIO 2.79 (<5); HDL CHOLESTEROL 64.3 MG/DL (>40); LDL CHOLESTEROL 91.9 MG/DL (<100); NON-HDL-C 115.7 MG/DL
[2024-06-02 15:05] LABS: CREATININE, URINE 70.4 MG/DL; MAU/CREAT RATIO 119.3 MCG/MG (0.0-30.0)
== END ==
LOC: M SFHCADAM 10:52
PROVIDERS: ATTEND Physician Assistant
DX: I16.0 Hypertensive urgency (principal); E78.00 Pure hypercholesterolemia, unspecified

== ENCOUNTER → 2024-09-12 | Outpatient (CLI) | payer MEDICARE | LOC: M RAD 09:00 | PROVIDERS: ATTEND Physician Assistant | DX: I10 Essential (primary) hypertension (principal) ==

== ENCOUNTER → 2024-09-14 | Outpatient (REF) | payer MEDICARE ==
[2024-09-14 19:28] LABS: CALCIUM LEVEL 9.2 MG/DL (8.3-10.6); CREATININE FOR GFR 1.31 MG/DL (0.55-1.30); GLOMERULAR FILTRATION RATE 41.1 (>32); POTASSIUM SERUM 5.1 MMOL/L (3.5-5.1)
== END ==
LOC: M SFHCADAM 15:17
PROVIDERS: ATTEND Physician Assistant
DX: Z00.00 Encounter for general adult medical examination without abnormal findings (principal); I10 Essential (primary) hypertension; I48.11 Longstanding persistent atrial fibrillation

== ENCOUNTER → 2025-02-02 | Outpatient (CLI) | payer MEDICARE | LOC: M CARPUL 10:41 | PROVIDERS: ATTEND Internal Medicine Critical Care Medicine | DX: I27.20 Pulmonary hypertension, unspecified (principal); I08.0 Rheumatic disorders of both mitral and aortic valves; I37.8 Other nonrheumatic pulmonary valve disorders ==

== ENCOUNTER 2025-02-04 20:01 | Emergency (ER) | payer MEDICARE ==
[~2025-02-04] VITALS: Ht 172.7 cm; Wt 52.3 kg
[2025-02-04 22:00] LABS: BASO # 0.0 10^3/uL (0.0-0.2); BASO % 0.3 % (0.0-1.0); EOS # 0.0 10^3/uL (0.0-0.5); EOS % 0.1 % (0.0-3.0); LYMPH # 1.0 10^3/uL (1.5-5.0); LYMPH % 10.4 % (24.0-44.0); MONO # 0.4 10^3/uL (0.0-0.8); MONO % 4.5 % (2.0-8.0); NEUTROPHILS # 8.3 10^3/uL (1.5-8.5); NEUTROPHILS % 84.6 % (36.0-66.0); PLATELET COUNT, AUTOMATED 130 10^3/uL (150-450)
[2025-02-04 22:50] LABS: ALT/SGPT 23.0 U/L (7.0-40); AST/SGOT 37.0 U/L (<34); CALCIUM LEVEL 9.6 MG/DL (8.3-10.6); CARBON DIOXIDE LEVEL 25.0 MMOL/L (20-31); CHLORIDE LEVEL 104.0 MMOL/L (98-107); CREATININE FOR GFR 1.32 MG/DL (0.55-1.30); GLOMERULAR FILTRATION RATE 39.6 (>32); POTASSIUM SERUM 4.8 MMOL/L (3.5-5.1); SODIUM LEVEL 141.0 MMOL/L (136-145)
[2025-02-05 04:45] LABS: KETONE, URINE AUTO RFX NEGATIVE (NEGATIVE); LEUKOCYTE ESTERASE UR AUTO RFX NEGATIVE (NEGATIVE); MUCUS, URINE RFX SMALL (NEGATIVE); NITRITE, URINE AUTO RFX NEGATIVE (NEGATIVE); RBC, URINE AUTO RFX TNTC /HPF (0-3); SQUAM EPITHELIAL CELL UR AURFX 1 /HPF (0-6); WBC, URINE AUTO RFX 5 /HPF (0-3); YEAST LIKE CELL URINE AUTO RFX SMALL
[2025-02-05 04:47] VITALS: BP 128/56; TEMP 96.2; O2SAT 97
== END 2025-02-05 05:50 | disposition home or self-care (01) ==
LOC: M ED 20:01
DX: N20.0 Calculus of kidney (principal); I48.91 Unspecified atrial fibrillation; I11.0 Hypertensive heart disease with heart failure; E78.5 Hyperlipidemia, unspecified; Z95.0 Presence of cardiac pacemaker; J47.9 Bronchiectasis, uncomplicated; Z79.01 Long term (current) use of anticoagulants; Z79.899 Other long term (current) drug therapy; Z88.0 Allergy status to penicillin